=== PATIENT | male | born 1995 | race African-American/Black ===

== ENCOUNTER 2023-01-15 17:31 | Emergency (ER) | payer SELFPAY ==
[~2023-01-15] VITALS: Ht 182.9 cm; Wt 71.7 kg
[2023-01-15 17:45] VITALS: BP 117/68
--- NOTE | 2023-01-15 18:03 | NUR ---
27 Y/O M BIB SELF C/O HEMATURIA FOUND TODAY, PT STATED HE HAS BEEN DRINKING ALCOHOL X 1WK STRAIGHT. NKA PMH: ASTHMA
--- NOTE | 2023-01-15 18:08 | NUR ---
DR MOORE AT BEDSIDE.
--- NOTE | 2023-01-15 18:17 | NUR ---
LAB AT BEDSIDE.
--- NOTE | 2023-01-15 18:45 | NUR ---
PT TO CT VIA WHEELCHAIR.
[2023-01-15 18:50] LABS: BASOPHILS # (AUTO) 0.1 K/uL (0.00-0.22); BASOPHILS % (AUTO) 1.2 % (0.0-2.0); EOSINOPHILS # (AUTO) 0.3 K/uL (0-0.4); EOSINOPHILS % (AUTO) 3.5 % (0.0-4.0); HEMATOCRIT 43.9 % (36-52); HEMOGLOBIN 14.6 g/dL (12.0-18.0); LYMPHOCYTES # (AUTO) 1.9 K/uL (2.0-11.5); LYMPHOCYTES % (AUTO) 26.2 % (20.5-51.1); MEAN CORPUSCULAR HEMOGLOBIN 31 pg (27-31); MEAN CORPUSCULAR HGB CONC 33 g/dL (33-37); MEAN CORPUSCULAR VOLUME 94.3 fL (80-94); MONOCYTES # (AUTO) 0.8 K/uL (0.8-1.0); MONOCYTES % (AUTO) 10.8 % (1.7-9.3); NEUTROPHILS # (AUTO) 4.3 K/uL (1.8-7.7); NEUTROPHILS % (AUTO) 58.3 % (42.2-75.2); PLATELET COUNT (AUTO) 249 K/uL (140-450); RED BLOOD CELL COUNT(AUTO) 4.66 MIL/uL (4.20-6.10); RED CELL DISTRIBUTION WIDTH 14.3 % (11.6-13.7); WHITE BLOOD COUNT (AUTO) 7.4 K/uL (4.8-10.8)
[2023-01-15 18:54] LABS: BILIRUBIN,URINE NEGATIVE (NEGATIVE); BLOOD, URINE NEGATIVE (NEGATIVE); LEUKOCYTE ESTERASE ,URINE NEGATIVE (NEGATIVE); NITRITE, URINE NEGATIVE (NEGATIVE); UGLUCOSE NEGATIVE (NEGATIVE)
[2023-01-15 18:55] LABS: APPEARANCE,URINE HAZY (CLEAR); COLOR,URINE AMBER (YELLOW)
[2023-01-15 19:09] LABS: ALBUMIN 3.9 g/dL (3.4-5.0); ANION GAP 7.9 (8-16); CARBON DIOXIDE 33.8 mmol/L (21-32); POTASSIUM 3.7 mmol/L (3.5-5.1); TOTAL BILIRUBIN 0.3 mg/dL (0.0-1.0)
--- NOTE | 2023-01-15 19:14 | NUR ---
GAVE REPORT TO DIRK WHITE.
[2023-01-15 19:40] VITALS: BP 117/68
--- NOTE | 2023-01-15 19:41 | NUR ---
Patient discharged with v/s stable. Written and verbal after care instructions given and explained. Patient verbalized understanding. Ambulatory with steady gait. All questions addressed prior to discharge. Advised to follow up with PMD.
== END 2023-01-15 19:40 | disposition home or self-care (01) ==
LOC: MED 17:31
DX: R31.9 Hematuria, unspecified (principal)
CPT/HCPCS: 36415; 80053; 81003; 85025; 87086; 99284

== ENCOUNTER 2023-02-24 12:26 | Emergency (ER) | payer SELFPAY ==
[~2023-02-24] VITALS: Ht 182.9 cm; Wt 70.3 kg
[2023-02-24 12:48] VITALS: BP 131/64
--- NOTE | 2023-02-24 13:23 | NUR ---
made call out to lobby and ER, no answer x1 lwbs by physician
--- NOTE | 2023-02-24 13:28 | NUR ---
TO ER [facility]
--- NOTE | 2023-02-24 13:29 | NUR ---
Patient being evaluated by physician.
[2023-02-24] MEDS ORDERED: DICYCLOMINE HCL LIQUID 20 MG, ALUMINUM HYD/MAG/SIMETHICONE 30 ML, LIDOCAINE VISCOUS 2% ... PO ONE ×3 (13:35)
[2023-02-24] MEDS ORDERED: ONDANSETRON 4 MG ODT PO ONE (13:35)
[2023-02-24 13:40] LABS: BASOPHILS # (AUTO) 0.1 K/uL (0.00-0.22); BASOPHILS % (AUTO) 1.1 % (0.0-2.0); EOSINOPHILS # (AUTO) 0.1 K/uL (0-0.4); EOSINOPHILS % (AUTO) 2.1 % (0.0-4.0); HEMATOCRIT 41.5 % (36-52); LYMPHOCYTES # (AUTO) 1.7 K/uL (2.0-11.5); MEAN CORPUSCULAR HEMOGLOBIN 31 pg (27-31); MEAN CORPUSCULAR HGB CONC 34 g/dL (33-37); MEAN CORPUSCULAR VOLUME 91.6 fL (80-94); MONOCYTES # (AUTO) 0.5 K/uL (0.8-1.0); MONOCYTES % (AUTO) 9.6 % (1.7-9.3); NEUTROPHILS # (AUTO) 2.7 K/uL (1.8-7.7); NEUTROPHILS % (AUTO) 54.2 % (42.2-75.2); PLATELET COUNT (AUTO) 300 K/uL (140-450); RED BLOOD CELL COUNT(AUTO) 4.53 MIL/uL (4.20-6.10); RED CELL DISTRIBUTION WIDTH 13.1 % (11.6-13.7)
[2023-02-24 14:03] LABS: ALBUMIN 3.4 g/dL (3.4-5.0); ANION GAP 9.4 (8-16); CARBON DIOXIDE 31.8 mmol/L (21-32); POTASSIUM 4.2 mmol/L (3.5-5.1); TOTAL BILIRUBIN 0.5 mg/dL (0.0-1.0)
[2023-02-24] MEDS ORDERED: DICYCLOMINE HCL LIQUID 10 MG/5 ML UDC ONE (14:16)
[2023-02-24] MEDS ORDERED: ALUMINUM HYD/MAG/SIMETHICONE 30 ML UDC ONE (14:16)
[2023-02-24] MEDS ORDERED: SUCR1TAB35 PO (14:17)
[2023-02-24] MEDS ORDERED: BEN10 PO (14:17)
[2023-02-24] MEDS ORDERED: OMEP20EC11 PO (14:17)
[2023-02-24 14:44] LABS: APPEARANCE,URINE CLEAR (CLEAR); BILIRUBIN,URINE NEGATIVE (NEGATIVE); BLOOD, URINE NEGATIVE (NEGATIVE); COLOR,URINE YELLOW (YELLOW); LEUKOCYTE ESTERASE ,URINE NEGATIVE (NEGATIVE); NITRITE, URINE NEGATIVE (NEGATIVE); UGLUCOSE NEGATIVE (NEGATIVE)
[2023-02-24 14:52] LABS: BARBITURATE, URINE NEGATIVE ng/ml (NEG <=200); BENZODIAZEPINE, URINE NEGATIVE ng/mL (NEG <=200); CANNABINOID, URINE NEGATIVE ng/mL (NEG <=50); COCAINE, URINE NEGATIVE ng/mL (NEG <=300); OPIATE, URINE NEGATIVE ng/mL (NEG <=2000); PHENCYCLIDINE SCREEN,URINE NEGATIVE ng/mL (NEG <=25)
--- NOTE | 2023-02-24 14:58 | NUR ---
Patient discharged with v/s stable. Written and verbal after care instructions given. Patient alert, oriented and verbalized understanding of instructions. Ambulatory with steady gait. All questions addressed prior to discharge. ID band removed. Patient advised to follow up with PMD. Rx of BENTYL, PRILOSEDC AND CARAFATE given. Opportunity to ask questions provided and answered. WORK NOTE HANDED TO PATIENT.
== END 2023-02-24 14:58 | disposition home or self-care (01) ==
LOC: MED 12:26
DX: K29.70 Gastritis, unspecified, without bleeding (principal)
CPT/HCPCS: 36415; 71045; 80053; 80305; 81003; 83690; 85025; 99284; Q0162